=== PATIENT | male | born 1990 | race Caucasian/White ===

== ENCOUNTER 2022-05-07 11:12 | Outpatient (REF) | payer OTHER, SELFPAY ==
[2022-05-07 13:03] LABS: Influenza A PCR NEGATIVE (Negative); Influenza B PCR NEGATIVE (Negative); Resp Syncy Virus RNA Qual PCR NEGATIVE (Negative); SARS COV2 PCR INHOUSE NEGATIVE (Negative)
== END 2022-05-07 11:13 | disposition home or self-care (01) ==
LOC: HO.LNP 11:12
PROVIDERS: Visit Provider Internal Medicine
DX: Z20.822 Contact with and (suspected) exposure to COVID-19 (principal); R09.89 Other specified symptoms and signs involving the circulatory and respiratory systems
CPT/HCPCS: 0241U

== ENCOUNTER 2022-06-17 14:21 | Outpatient (REF) | payer OTHER, SELFPAY ==
[2022-06-17 15:05] LABS: Influenza A PCR NEGATIVE (Negative); Influenza B PCR NEGATIVE (Negative); Resp Syncy Virus RNA Qual PCR NEGATIVE (Negative); SARS COV2 PCR INHOUSE NEGATIVE (Negative)
== END 2022-06-17 14:22 | disposition home or self-care (01) ==
LOC: HO.LNP 14:21
PROVIDERS: Visit Provider Nurse Practitioner Family
DX: R68.89 Other general symptoms and signs (principal); Z20.822 Contact with and (suspected) exposure to COVID-19
CPT/HCPCS: 0241U

== ENCOUNTER 2022-09-01 08:22 | Outpatient (AMB) | payer OTHER, SELFPAY ==
--- NOTE | 2022-09-01 08:41 | AM.OFFWIN_ITS ---
Intake Vital Signs 09/01/22 08:43 BP 120/80 Blood Pressure Location Rt brachial Position Sitting Pulse 70 Pulse Source Pulse Oximeter Pulse Oximetry (%) 97 Oxygen Delivery Method Room Air Intake Visit Reasons: EP Back pain/workout injury (lobby) Intake Note: Patient here because he was working out on wednesday and believes he pulled something in his lower back while working out. Patient Tobacco Use Status: Never used Tobacco Allergies No Known Allergies Allergy (Verified 09/01/22 08:43) Do you need a note to return to daycare/school/sports/work: Yes HPI EP Back pain/workout injury (lobby) HPI Details 32-year-old male presents to the office for a sick visit. Patient was lifting weights at the gym when he sprained his back. Pain is relieved on bending forward. Worsened on standing up. Pain is radiating from the lower back into the legs. No urinary incontinence. [facility] Medical History (Updated 09/01/22 @ 09:14 by Gerry Baum MD) Flu-like symptoms Social History Patient Tobacco Use Status: Never used Tobacco Physical Exam Vital Signs: Last Vital Signs Pulse 70 09/01/22 08:43 BP 120/80 09/01/22 08:43 Pulse Ox 97 09/01/22 08:43 Oxygen Delivery Method Room Air 09/01/22 08:43 Back/Spine/Pelvis Other: No spinal tenderness. No paraspinal spasm. Assessment & Plan Assessment & Plan (1) Low back pain: Code(s): M54.50 - Low back pain, unspecified Plan: Meloxicam and cyclobenzaprine called in. Toradol injection provided. Patient was advised rest. Note for work if necessary provided. Once pain symptoms subside, patient should start physical therapy. If symptoms worsen to follow-up here. Orders: Orders AMB Ketorolac Injection Today M54.50 - Low back pain, unspecified Medications: New ketorolac 60 mg (2 mL) IM ONCE 2 mL 0RF M54.50 - Low back pain, unspecified Coding Level of Care Code Est Pt Level 4 (92085) Diagnoses Low back pain M54.50
[2022-09-01 08:43] VITALS: BP 120/80; PULSE 70; O2SAT 97
== END 2022-09-01 09:37 | disposition home or self-care (01) ==
PROVIDERS: PCP Internal Medicine; Visit Provider Internal Medicine
DX: M54.50 Low back pain, unspecified (principal)
CPT/HCPCS: 96372; 99214; J1885

== ENCOUNTER 2023-12-01 09:10 | Outpatient (REF) | payer OTHER, SELFPAY ==
[2023-12-01 11:04] LABS: Influenza A PCR NEGATIVE (Negative); Influenza B PCR NEGATIVE (Negative); Resp Syncy Virus RNA Qual PCR NEGATIVE (Negative); SARS COV2 PCR INHOUSE NEGATIVE (Negative)
== END 2023-12-01 09:11 | disposition home or self-care (01) ==
LOC: HO.LAB 09:10
PROVIDERS: Registered Nurse; PCP Internal Medicine
DX: R68.89 Other general symptoms and signs (principal); J06.9 Acute upper respiratory infection, unspecified
CPT/HCPCS: 0241U; 99212

== ENCOUNTER 2023-12-01 09:10 | Outpatient (AMB) | payer OTHER, SELFPAY ==
--- NOTE | 2023-12-01 09:09 | MHC.OFFWIV ---
Intake Vital Signs 12/01/23 09:13 Height 5 ft 10 in Weight 269 lb BMI 38.6 BP 120/70 Blood Pressure Location Lt brachial Position Sitting Pulse 70 Pulse Source Pulse Oximeter Temp 97.9 F Temp Source Oral Pulse Oximetry (%) 97 Oxygen Delivery Method Room Air Intake Visit Reasons: EP-body aches, headaches, frequently urine Intake Note: Patient here for body aches, headaches, frequent diarrhea and sneezing which all started wednesday. Patient Tobacco Use Status: Never used Tobacco Allergies No Known Allergies Allergy (Verified 12/01/23 09:14) Do you need a note to return to daycare/school/sports/work: Yes HPI EP-body aches, headaches, frequently urine HPI Details This note is constructed using voice recognition software. 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 The patient is a 33 year old male who presents to the clinic today with headaches, body aches, and diarrhea since Wednesday. He reports that 3 other coworkers have been sick in the last week and a half, with various times off from work. He denies fever, chills, has had up to 4 episodes of diarrhea each day. He has taken [id number] medication to help with the body aches in the headaches including Tylenol. He has not taken anything this stopped the diarrhea. He is tolerating food and fluids. [facility] Medical History (Updated 09/01/22 @ 09:14 by Gerry Baum MD) Flu-like symptoms Social History Patient Tobacco Use Status: Never used Tobacco Review of Systems Const All systems reviewed & are unremarkable except as noted in HPI and below Physical Exam Vital Signs: Last Vital Signs Temp 97.9 F 12/01/23 09:13 Pulse 70 12/01/23 09:13 BP 120/70 12/01/23 09:13 Pulse Ox 97 12/01/23 09:13 Oxygen Delivery Method Room Air 12/01/23 09:13 BMI result Body Mass Index 38.6 Const General: cooperative, healthy appearing, comfortable and no acute distress Orientation/consciousness: patient oriented x3 Limitations: no limitations HEENT Head: Yes normal to inspection Ears: hearing grossly normal bilaterally, external ears normal and TM's normal bilaterally General nose exam: Normal external nose present, Normal nares present and No nasal discharge present Face and sinus: Yes normal facial exam and Yes sinuses nontender Mouth: Normal oral and palatal mucosa present and moist mucous membranes Throat: Yes tonsils normal, Yes uvula midline and Yes posterior oropharynx abnormal (Erythema) Eyes General: appearance normal, both eyes and all related structures Neck Neck: Yes normal visual inspection Resp Effort & Inspection: normal respiratory effort, able to speak in complete sentences, Actively coughing, no respiratory distress, not tachypneic, no tripod positioning and no use of accessory muscles Auscultation: clear to auscultation bilaterally Cardio Jugular venous distension: no JVD Rate: regular rate Rhythm: regular rhythm Heart sounds: S1 normal heart sound present, S2 normal heart sound present, no click, no gallops, no murmurs and no rubs GI Inspection: Yes normal to inspection Palpation (GI): Soft to palpation and nontender Auscultation: normal bowel sounds Skin General skin exam: no rashes or lesions noted, elasticity normal and turgor normal Neuro General: patient oriented x3 Extrem General: Yes normal to inspection and Yes no clubbing, cyanosis or edema Assessment & Plan Assessment & Plan (1) Flu-like symptoms: Code(s): R68.89 - Other general symptoms and signs Plan: Viral swab obtained to rule out Covid based on symptoms. Advised mask wearing while symptomatic and quarantine per current CDC guidelines. Reviewed at home support methods including hydration, humidification, vix vapor rub, sinus rinse. Given GI symptoms, may also be viral gastroenteritis. Advised hydration efforts, and gentle diet to help reduce worsening. May try [id number] Pepto-Bismol or other antidiarrheal medication. Advised follow up with worsening symptoms such as dyspnea at rest, which would require emergent evaluation. Letter provided for work to remain out through today and tomorrow. Plan See above for full details and plan. Orders: Orders SARS-CoV2/FLU/RSV Today J06.9 - Acute upper respiratory infection, unspecified Coding Level of Care Code Est Pt Level 3 (41031) Diagnoses Flu-like symptoms R68.89
[2023-12-01 09:13] VITALS: BP 120/70; PULSE 70; TEMP 36.6; O2SAT 97; BMI 38.6
== END 2023-12-01 09:38 | disposition home or self-care (01) ==
PROVIDERS: PCP Internal Medicine; Visit Provider Registered Nurse
DX: R68.89 Other general symptoms and signs (principal)

== ENCOUNTER 2024-01-17 10:40 | Outpatient (AMB) | payer OTHER, SELFPAY ==
--- NOTE | 2024-01-17 13:03 | MHC.OFFWIV ---
Intake Vital Signs 01/17/24 13:06 Weight 278 lb BP 120/80 Blood Pressure Location Rt brachial Position Sitting Pulse 75 Pulse Source Pulse Oximeter Temp 98.1 F Temp Source Oral Pulse Oximetry (%) 98 Oxygen Delivery Method Room Air Intake Visit Reasons: EP body aches, congestion, vomiting [phone] Intake Note: Patient here for body aches, congestion, and vomiting that started today Patient Tobacco Use Status: Never used Tobacco Allergies No Known Allergies Allergy (Verified 01/17/24 13:09) Do you need a note to return to daycare/school/sports/work: Yes HPI HPI Comments History of Present Illness Details History of Present Illness The patient is a 33-year-old male presenting with nausea and vomiting. The symptoms began abruptly at 3:00 AM on the day of the visit, with two episodes of emesis initially. Initially, the vomiting was clear in appearance, but the patient described it as gunk clear in texture. Following the vomiting episodes, he experienced body aches, a stuffy nose, bloating sensation in the stomach, and headache. Although the nausea persists intermittently, the patient has refrained from eating to avoid further vomiting. There is no history of diarrhea, fever, upper respiratory symptoms such as cough or sore throat, and no recent significant dietary changes. The patient lives alone and reported no exposures to individuals with similar symptoms. He has no significant alcohol consumption or known sick contacts. The patient expresses concern about current viral infections circulating in the community and is currently refraining from occupational duties due to his symptoms. [facility] Medical History (Updated 01/17/24 @ 13:23 by Ashley Chavez PA-C) Flu-like symptoms Social History Patient Tobacco Use Status: Never used Tobacco Review of Systems Const All systems reviewed & are unremarkable except as noted in HPI and below Physical Exam Vital Signs: Last Vital Signs Temp 98.1 F 01/17/24 13:06 Pulse 75 01/17/24 13:06 BP 120/80 01/17/24 13:06 Pulse Ox 98 01/17/24 13:06 Oxygen Delivery Method Room Air 01/17/24 13:06 Const General: cooperative, healthy appearing, comfortable, no acute distress and well developed Orientation/consciousness: patient oriented x3 Limitations: no limitations HEENT Head: Yes normal to inspection Ears: hearing grossly normal bilaterally General nose exam: Normal external nose present Face and sinus: Yes normal facial exam Eyes General: appearance normal, both eyes and all related structures Neck Neck: Yes normal visual inspection and Yes full ROM Resp Effort & Inspection: normal respiratory effort and able to speak in complete sentences GI Inspection: Yes normal to inspection Palpation (GI): Soft to palpation and Tenderness to palpation present (GI) (very mild general) Fisher's sign negative Skin General skin exam: no rashes or lesions noted Neuro General: patient oriented x3 Extrem General: Yes normal to inspection Assessment & Plan Assessment & Plan (1) Viral gastroenteritis: Code(s): A08.4 - Viral intestinal infection, unspecified Plan: The likely diagnosis is viral gastroenteritis given the symptomology and current viral outbreaks. Testing for influenza, COVID-19, and RSV has been performed to rule out these infections. Though the patient exhibits mild generalized abdominal tenderness, there are no signs suggestive of a more acute underlying abdominal condition requiring immediate intervention. Recommend supportive care with proper hydration using fluids like water or diluted Gatorade to maintain hydration. Advise starting a bland diet as tolerated, focusing on bland items like the BRAT diet bananas, rice, applesauce, toast and slowly reintroducing regular foods. Prescribed ondansetron (Zofran) for symptomatic relief of nausea, with instructions on administration. 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 Patient was informed and verbally consented to the use of an ambient scribe for clinic note documentation during this visit. Orders: Orders SARS-CoV2/FLU/RSV Today J06.9 - Acute upper respiratory infection, unspecified Medications: New ondansetron 4 mg PO Q8H PRN 10 tabs 0RF nausea and vomiting Coding Level of Care Code New Pt Level 3 (97503) Diagnoses Viral gastroenteritis A08.4
[2024-01-17 13:06] VITALS: BP 120/80; PULSE 75; TEMP 36.7; O2SAT 98
== END 2024-01-17 13:25 | disposition home or self-care (01) ==
PROVIDERS: PCP Internal Medicine; Visit Provider Physician Assistant
DX: A08.4 Viral intestinal infection, unspecified (principal)

== ENCOUNTER 2024-01-17 10:40 | Outpatient (REF) | payer OTHER, SELFPAY ==
[2024-01-17 20:01] LABS: Influenza A PCR NEGATIVE (Negative); Influenza B PCR NEGATIVE (Negative); Resp Syncy Virus RNA Qual PCR NEGATIVE (Negative); SARS COV2 PCR INHOUSE NEGATIVE (Negative)
== END 2024-01-17 10:41 | disposition home or self-care (01) ==
LOC: HO.LNP 10:40
PROVIDERS: PCP Internal Medicine; Visit Provider Physician Assistant
DX: J06.9 Acute upper respiratory infection, unspecified (principal); A08.4 Viral intestinal infection, unspecified
CPT/HCPCS: 0241U; 99202

== ENCOUNTER 2024-06-06 08:53 | Outpatient (REF) | payer OTHER, SELFPAY ==
[2024-06-06 11:57] LABS: Influenza A PCR NEGATIVE (Negative); Influenza B PCR NEGATIVE (Negative); Resp Syncy Virus RNA Qual PCR NEGATIVE (Negative); SARS COV2 PCR INHOUSE NEGATIVE (Negative)
--- OUTSIDE RECORDS SUMMARY | 2024-06-06 12:10 | XMS_ITS | Clinical Summary ---
Author Organization [facility] [address] [place] [address] [place] [phone] Phone Care Team Providers Care Steel Erecting Pusher Name Role Phone Naveen Flores MD Primary Care Provider [phone] Allergies No known active allergies Medications fluticasone [...] Noted Date Diagnosed Date Bipolar 2 disorder ([facility] V24, [facility] V28) Schizophrenia ([facility] V24, [facility] V28) 024 Morbid obesity with BMI of 4 0.0-44.9, adult ([facility] V24, [facility] V28) 11/21/2023 Immunizations Name Administration Dates Next Due DTP 06/30/1995, 5,11/15/1992,07/18,1990 [id number] (Pentacel) 2mo to less than 5yo 07/18/1992,1990 Hepatitis B (Rgziafj-I-Dipcl , Recombivax HB-Adult) 19yo and older 04/07/1996,10/12/1995,06/30/1995 [...] Medical History Date Comments Bipolar 2 disorder ([facility]24, [facility] V28) 02/16/2024 patient stephanie hx of mental h ealth issues as an adult - child [place] mental issues Schizophrenia ([facility] V24, [facility] V28) DX:Schizophrenia ([facility]) Family History Medical History Relation Name [...] care for your loved ones. For example, child welfare director or elderly care for an older adult? 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 Not on file Not [...] LAB CHEMISTRY METHOD 12/30/2023 7:32 PM EST [facility] Blood Venous blood specimen / Unknown Venipuncture / Unknown 12/30/2023 3:04 PM EST 12/30/2023 3:04 PM EST Francesca RENAE LAB BLOOD ORDERABLES Fi nal Result [facility] [address] [place] [address], * HIV 1,2 antibody, p24 antigen with reflex to differentiation (12/30/2023 3:04 PM EST) [facility] HIV Combo AB/AG Negative Negative LAB CHEMISTRY METHOD 12/30/2023 7:33 PM EST [facility] Blood Venous blood specimen / Unknown Venipuncture / Unknown 12/30/2023 3:04 PM EST 12/30/2023 3:04 PM EST Narrative [facility] - 12/30/2023 7:33 PM EST This [...] RENAE LAB BLOOD ORDERABLES Fi nal Result [facility] [address] [place] [address], [place] [phone] * (ABNORMAL) Lipid panel with reflex to direct LDL (12/30/2023 3:04 PM EST) [facility] Cholesterol 199 0 - 200 mg/dL LAB CHEMISTRY METHOD 12/30/2023 6:52 PM EST [facility] Triglycerides 93 0 - 150 mg/dL LAB CHEMISTRY METHOD 12/30/2023 6:52 PM [facility] HDL 66 >=40 mg/dL LAB CHEMISTRY METHOD 12/30/2023 6:52 PM EST [facility] LDL Calculated 114(H) 0 - 100 mg/dL LAB CHEMISTRY METHOD 12/30/2023 6:52 PM EST [facility] VLDL Cholesterol Damian 18.6 mg/dL LAB CHEMISTRY METHOD 12/30/2023 6:52 PM EST [facility] Non HDL Chol. (LDL+VLDL) 133 <145 mg/dL LAB CHEMISTRY METHOD 12/30/2023 6:52 PM [facility] Chol/HDL Ratio 3.0 0.0 - 4.4 LAB CHEMISTRY METHOD 12/30/2023 6:52 PM [facility] Blood Venous blood specimen / Unknown Venipuncture / Unknown 12/30/2023 3:04 PM EST 12/30/2023 3:04 PM EST Francesca Aranda [place] LAB BLOOD ORDERABLES Fi nal Result Performing Organization Address [facility]/ZIP Co de Phone Number [facility] [address] [place] [address], [place] [phone] from Last 3 Months or Most Recently Relevant to Health Maintenance Insurance [facility] Care Teams Steel Erecting Pusher Relationship Specialty Start Date End Date Naveen Flores MD [address] [place] [phone] PCP - General 06/26/09
== END 2024-06-06 08:54 | disposition home or self-care (01) ==
LOC: HO.LNP 08:53
PROVIDERS: PCP Internal Medicine; Visit Provider Physician Assistant
DX: J06.9 Acute upper respiratory infection, unspecified (principal)
CPT/HCPCS: 0241U; 99212

== ENCOUNTER 2024-06-06 08:53 | Outpatient (AMB) | payer OTHER, SELFPAY ==
--- NOTE | 2024-06-06 09:02 | AM.OFFWIN_ITS ---
Intake Vital Signs 06/06/24 09:17 Weight 287 lb 4 oz BP 122/80 Blood Pressure Location Rt brachial Position Sitting Pulse 77 Pulse Source Pulse Oximeter Temp 98.2 F Temp Source Oral Pulse Oximetry (%) 97 Oxygen Delivery Method Room Air Intake Visit Reasons: EP-stuffy nose, nights sweat, body ache Intake Note: Patient here for stuffy nose, body aches, night sweats that started yesterday. Patient Tobacco Use Status: Never used Tobacco Allergies No Known Allergies Allergy (Verified 01/17/24 13:09) Do you need a note to return to daycare/school/sports/work: Yes HPI HPI Comments History of Present Illness Details This is a 34-year-old male with no stated past medical history presenting for evaluation of body aches, stuffy nose and night sweats that he has had since yesterday afternoon. Patient denies having any fever, chills, shortness for breath, nausea, vomiting, otalgia, headache or lightheadedness. Patient has taken Delsym only because he has had a very mild cough. Patient denies having any sick contacts. [facility] Medical History (Updated 06/06/24 @ 09:28 by Raquel Mcconnell PA-C) Acute upper respiratory infection Flu-like symptoms Social History Patient Tobacco Use Status: Never used Tobacco Review of Systems Const All systems reviewed & are unremarkable except as noted in HPI and below Reports body aches, Denies chills, Denies fever(s), Denies headache(s) and Denies weakness Eyes Reports no additional complaints ENT Reports no additional complaints, Denies headache(s), Denies hoarseness, Reports nasal congestion and Denies sore throat Card Reports no additional complaints and Denies dyspnea Resp Reports no additional complaints, Reports cough ( mild ) and Denies dyspnea GI Denies nausea and Denies vomiting Reports no additional complaints Musc Reports no additional complaints Skin/Breast Reports system reviewed and no additional complaints, except as documented Neuro Reports no additional complaints, Denies headache(s) and Denies weakness Psych Reports no additional complaints Endo Reports no additional complaints Stew/Lymph Reports no additional complaints Aller/Immun Reports no additional complaints Physical Exam Const General: cooperative, no acute distress, well developed, alert, awake and Physically active; No ill appearing or tired appearing Nutritional Appearance: well nourished Orientation/consciousness: patient oriented x3 Limitations: no limitations HEENT Head: Yes normal to inspection Ears: hearing grossly normal bilaterally, external ears normal, TM's normal bilaterally and EAC's normal General nose exam: Normal external nose present Face and sinus: Yes normal facial exam and Yes sinuses nontender Mouth: Normal oral and palatal mucosa present, oropharynx normal and moist mucous membranes Throat: Yes posterior oropharynx normal Eyes General: appearance normal, both eyes and all related structures Neck Lymphatic: no lymphadenopathy noted Resp Effort & Inspection: normal respiratory effort, no cough, no nasal flaring and not tachypneic Auscultation: clear to auscultation bilaterally Cardio Rate: regular rate Rhythm: regular rhythm Skin General skin exam: no rashes or lesions noted Neuro General: patient oriented x3 Psych Appearance: grossly normal Mental Status: mental status grossly normal Insight: Good insight present (Psych) Judgement: Good judgement present (Psych) Assessment & Plan Assessment & Plan (1) Acute upper respiratory infection: Comment: Patient is well-appearing, afebrile and in no acute distress. Patient's history coupled with his examination is most likely consistent with a viral illness. SARS panel is ordered and results are pending. Code(s): J06.9 - Acute upper respiratory infection, unspecified Plan: Ibuprofen and/or Tylenol as needed for body aches, increased sleep as tolerated, clear fluids daily. Orders: Orders SARS-CoV2/FLU/RSV Today J06.9 - Acute upper respiratory infection, unspecified Coding Level of Care Code Est Pt Level 3 (22192) Diagnoses Acute upper respiratory infection J06.9 Time Spent (min) 20
[2024-06-06 09:17] VITALS: BP 122/80; PULSE 77; TEMP 36.8; O2SAT 97
--- OUTSIDE RECORDS SUMMARY | 2024-06-06 09:18 | XMS_ITS | Clinical Summary ---
Author Organization [facility] [address] [place] [address] [place] [phone] Phone Care Team Providers Care Land Leasing Examiner Name Role Phone Naveen Flores MD Primary Care Provider [phone] Allergies No known active allergies Medications fluticasone propionate (FLONASE) 50 mcg/actuation nasal spray Administer 1 spray into each nostril 2 (two) times a day. FOR 30 DAYS 3 Active cetirizine (ZyrTEC) 10 mg tablet Take 1 tablet (10 mg total) by mouth 1 (one) time each day. 90 each 1 4 Active Additional Information Patient not taking.Reported on 02/16/2024 Active Problems Problem Noted Date Diagnosed Date Bipolar 2 disorder ([facility] V24, [facility] V28[facility] Schizophrenia ([facility] V24, [facility] V28) 024 Morbid obesity with BMI of 4 0.0-44.9, adult ([facility] V24, [facility] V28) 11/21/2023 Immunizations Name Administration Dates Next Due DTP 06/30/1995, 5,11/15/1992,07/18,1990 XIqW-[id number] (Pentacel) 2mo to less than 5yo 07/18/1992,1990 Hepatitis B (Yeawrjx-M-Twdjs , Recombivax HB-Adult) 19yo and older 04/07/1996,10/12/1995,06/30/1995 Influenza trivalent, with pr eservative (Fluzone; Afluria) 6mo and older 11/18/2015,09/09/2012 MMR, measles mumps and rubel la Live (Priorix; M-M-R II) 12mo and older 06/30/1995,07/18/1992 Meningococcal MCV4P 09/23/2005 OPV 06/30/1995, 3,07/18/1992,05/29 Td Tetanus diptheria (Tdvax) 7yo and older 05/11/2002 Tdap Tetanus diptheria acell ular pertussis (Boostrix; Adacel) 7yo and older 01/28/2019,12/17/2015,01/23/2013 Surgical History Surgery Date Site/Laterality Comments WISDOM TOOTH EXTRACTION 2015 PROCEDURE: HISTORICAL WISDOM TEETH EXTRACTION; COMMENT: all 4 Medical History Medical History Date Comments Bipolar 2 disorder ([facility], [facility]28) 02/16/2024 patient stephanie hx of mental h ealth issues as an adult - child [place] mental issues Schizophrenia ([facility]24, [facility] V28) DX:Schizophrenia ([facility]) Family History Medical History Relation Name Comments Blindness Maternal Grandmother Diabetes Mother's side Cataracts Neg Hx Glaucoma Neg Hx Macular degeneration Neg Hx Strabismus Neg Hx Relation Name Status Comments Brother 1 Alive Brother 2 Alive Father Alive Maternal Grandfather Maternal Grandmother Alive Mother Alive Mother's side Paternal Grandfather Alive Paternal Grandmother Alive Sister Alive Social History Tobacco Use Types Packs/Day Years Used Date Smoking Tobacco: Never Smokeless Tobacco: Never Tobacco Cessation:Counseling Given: Not Answered Alcohol Use Standard Drinks/Week Comments Yes 0 (1 standard drink = 0.6 oz pur e alcohol) holidays, events Housing Instability Answer Date Recorde d Are you worried that in the next 2 months you may not have stable housing? No 12/30/2023 Food Access & Nutrition Answer Date Rec orded Do you have access to a vari ety of food including fruits and vegetables? Yes 12/30/2023 Access to Healthcare Answer Date Record ed Within the last 3 months, ho w many times did you visit the emergency department for your medical care? 0 12/30/2023 Health Literacy Answer Date Recorded How often do you need to hav e someone help you when you read instructions, pamphlets, or other written material from your doctor or pharmacy? Never 12/30/2023 Caregiver: How often do you need to have someone help you when you read instructions, pamphlets, or other written material from your doctor or pharmacy? Not on file 12/30/2023 Financial Risk Answer Date Recorded How hard is it for you to pa y for the very basics like food, housing, medical care, and air conditioning / heating? Somewhat hard 12/30/2023 Transportation Answer Date Recorded Has the lack of transportati on kept you from meetings, work, or from getting things needed for daily living? No Has the lack of transportati on kept you from medical appointments or from getting medications? No 12/30/2023 Social Isolation Answer Date Recorded How often do you feel lonely or isolated from th ose around you? Never 12/30/2023 Food Risk Answer Date Recorded Within the past 12 months we worried whether our food would run out before we got money to buy more. Never true 12/30/2023 Within the past 12 months th e food we bought just didn't last and we didn't have money to get more. Never true 12/30/2023 Dependent Care Answer Date Recorded Do you need help finding or paying for care for your loved ones. For example, housekeeper child care or elderly care for an older adult? No 12/30/2023 Education Answer Date Recorded Do you think completing more education or training, like finishing a GED, going to college, or learning a trade, would be helpful for you? Yes 12/30/2023 Living Situation Answer Date Recorded What is your living situation? 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 Not on file Not on file Obstetrics History Last Filed Vital Signs Vital Sign Reading Time Taken Comments Blood Pressure 132/84 02/17/2024 10:00 AM EST Pulse 87 02/17/2024 10:00 AM EST Temperature 36.3 ??C (97.3 ??F) 02/17/2024 10:[address] Respiratory Rate 16 02/17/2024 10:00 AM EST Oxygen Saturation 98% 02/17/2024 10:00 AM EST Inhaled Oxygen Concentration - - Weight 118 kg (260 lb) 02/16/2024 11:09 PM EST Height 177.8 cm (5' 10 ) 02/16/2024 11:09 PM EST Body Mass Index 37.31 02/16/2024 11:09 PM EST Plan of Treatment Health Maintenance Due Date Last Done Comments COVID-19 Vaccine ( season) 2023 Depression Screening 12/29/2024 12/30/2023 Social Influencers of Health Screening 12/29/2024 12/30/2023 Cholesterol Screening (Lipid Panel) 12/29/2028 12/30/2023, 07/28/2022 DTaP,Tdap,and Td Vaccines (10 - Td or Tdap) 01/28/2029 01/28/2019, 12/17/2015, 01/23/2013, Additional history exists HIB Vaccines Completed 07/18/1992, 04/1992, 1990, Additional history exists IPV Vaccines Completed 06/30/1995, 02/1992, 07/18/1992, Additional history exists MMR Vaccines Completed 06/30/1995, 07/18/1992 Hepatitis B Vaccines Completed 04/07/1996, 10/12/1995, 06/30/1995 Meningococcal ACWY Vaccine Aged Out 09/23/2005 N o longer eligible based on patient's age to complete this topic Influenza Vaccine Discontinued 11/18/2015, 09/09/2012 HIV Screening Completed 12/30/2023, 07/28/2022 Hepatitis C Screening Completed 12/30/2023, 023 HPV Vaccines Aged Out No longer eligi ble based on patient's age to complete this topic Hepatitis A Vaccines Aged Out No long er eligible based on patient's age to complete this topic Meningococcal B Vaccine Aged Out No l onger eligible based on patient's age to complete this topic Pneumococcal Vaccine: Pediatrics (0 to 5 Years) and At-Risk Patients (6 to 64 Years) Aged Out No longer eligible based on patient's age to complete this topic RSV Immunization Patients Under 20 months Aged Out No longer eligible based on patient's age to complete this topic Varicella Vaccines Aged Out No longer eligible based on patient's age to complete this topic Procedures Procedure Name Priority Date/Time Associated Diagnosis Comments HEPATITIS C ANTIBODY Routine 12/30/2023 3:04 PM EST Screening for STDs (sexually transmitted diseases) HIV 1, 2 ANTIBODY, P24 ANTIGEN WITH REFLEX TO DIFFERENTIATION Routine 12/30/2023 3:04 PM EST Screening for STDs (sexually transmitted diseases) LIPID PANEL WITH REFLEX TO DIRECT LDL Routine 12/30/2023 3:04 PM EST Routine history and physical examination of adult from Last 3 Months or Most Recently Relevant to Health Maintenance Results * Hepatitis C antibody (12/30/2023 3:04 PM EST) Pathologist [facility] Hepatitis C Antibody Negative Negative LAB CHEMISTRY METHOD 12/30/2023 7:32 PM EST [facility] Blood Venous blood specimen / Unknown Venipuncture / Unknown 12/30/2023 3:04 PM EST 12/30/2023 3:04 PM EST Francesca RENAE LAB BLOOD ORDERABLES Fi nal Result [facility] [address] [place] [address], * HIV 1,2 antibody, p24 antigen with reflex to differentiation (12/30/2023 3:04 PM EST) [facility] HIV Combo AB/AG Negative Negative LAB CHEMISTRY METHOD 12/30/2023 7:33 PM EST [facility] Blood Venous blood specimen / Unknown Venipuncture / Unknown 12/30/2023 3:04 PM EST 12/30/2023 3:04 PM EST Narrative [facility] - 12/30/2023 7:33 PM EST This assay is a 4th generation assay allowing for earlier detection of HIV infection by detecting the presence of the HIV-1 p24 antigen as well as the traditional antibodies to HIV type 1 (including group O) and type 2. ??Use of a 4th generation assay is the current CDC recommendation for HIV screening. Francesca RENAE LAB BLOOD ORDERABLES Fi nal Result [facility] [address] [place] [address], [place] [phone] * (ABNORMAL) Lipid panel with reflex to direct LDL (12/30/2023 3:04 PM EST) [facility] Cholesterol 199 0 - 200 mg/dL LAB CHEMISTRY METHOD 12/30/2023 6:52 PM EST [facility] Triglycerides 93 0 - 150 mg/dL LAB CHEMISTRY METHOD 12/30/2023 6:52 PM [facility] HDL 66 >=40 mg/dL LAB CHEMISTRY METHOD 12/30/2023 6:52 PM EST [facility] LDL Calculated 114(H) 0 - 100 mg/dL LAB CHEMISTRY METHOD 12/30/2023 6:52 PM EST [facility] VLDL Cholesterol Damian 18.6 mg/dL LAB CHEMISTRY METHOD 12/30/2023 6:52 PM EST [facility] Non HDL Chol. (LDL+VLDL) 133 <145 mg/dL LAB CHEMISTRY METHOD 12/30/2023 6:52 PM [facility] Chol/HDL Ratio 3.0 0.0 - 4.4 LAB CHEMISTRY METHOD 12/30/2023 6:52 PM [facility] Blood Venous blood specimen / Unknown Venipuncture / Unknown 12/30/2023 3:04 PM EST 12/30/2023 3:04 PM EST Francesca Aranda [place] LAB BLOOD ORDERABLES Fi nal Result Performing Organization Address [facility]/ZIP Co de Phone Number [facility] [address] [place] [address], [place] [phone] from Last 3 Months or Most Recently Relevant to Health Maintenance Insurance [facility] Care Teams Land Leasing Examiner Relationship Specialty Start Date End Date Naveen Flores MD [address] [place] [phone] PCP - General 06/26/09
== END 2024-06-06 09:23 | disposition home or self-care (01) ==
PROVIDERS: PCP Internal Medicine; Visit Provider Physician Assistant
DX: J06.9 Acute upper respiratory infection, unspecified (principal)

== ENCOUNTER 2024-10-31 10:47 | Outpatient (REF) | payer OTHER, SELFPAY ==
--- OUTSIDE RECORDS SUMMARY | 2024-10-31 15:00 | XMS_ITS ---
Author Name [facility] Organization Unknown Care Team Organization Name Specialty Phone Email Start Date End Da te [facility] 12/23/2021 4
[2024-10-31 15:19] LABS: Chlamydia pneumoniae PCR Not Detected (Not Detect.); Coronavirus 229E PCR Not Detected (Not Detect.); Coronavirus HKU1 PCR Not Detected (Not Detect.); Coronavirus NL63 PCR Not Detected (Not Detect.); Coronavirus OC43 PCR Not Detected (Not Detect.); RSV PCR Not Detected (Not Detect.); Rhino/Enterovirus PCR Not Detected (Not Detect.)
[2024-10-31 15:23] LABS: Influenza A H1 PCR Not Detected (Not Detect.); Influenza A H1-2009 PCR Not Detected (Not Detect.); Influenza A H3 PCR Not Detected (Not Detect.); SARS-CoV-2 PCR Not Detected (Not Detect.)
== END 2024-10-31 10:48 | disposition home or self-care (01) ==
LOC: HO.LAB 10:47
PROVIDERS: Physician Assistant; PCP Internal Medicine
DX: J06.9 Acute upper respiratory infection, unspecified (principal); R05.9 Cough, unspecified; R09.81 Nasal congestion
CPT/HCPCS: 87633; 99212

== ENCOUNTER 2024-10-31 10:47 | Outpatient (AMB) | payer OTHER, SELFPAY ==
[2024-10-31 10:54] VITALS: BP 114/80; PULSE 88; RESP 18; TEMP 36.8; O2SAT 99; BMI 40.3
--- NOTE | 2024-10-31 10:54 | AM.OFFWIN_ITS ---
Intake Vital Signs 10/31/24 10:54 Height 5 ft 10 in Weight 281 lb BMI 40.3 BP 114/80 Blood Pressure Location Lt brachial Position Sitting Respiration 18 Pulse 88 Pulse Source Pulse Oximeter Temp 98.2 F Temp Source Oral Pulse Oximetry (%) 99 Oxygen Delivery Method Room Air Intake Visit Reasons: EP-cough, diarrhea, night sweats Patient Tobacco Use Status: Never used Tobacco Engineering Technical Analyst Required: No Allergies No Known Allergies Allergy (Verified 10/31/24 10:58) HPI HPI Comments History of Present Illness Details History - The patient is a 34-year-old male pres enting with symptoms of a viral infection for 3 days. - Reports cough, congestion, diarrhea, a nd night sweats. No bloody or black diarrhea. - Experiences feeling hot and cold witho ut fever, shortness of breath or wheezing. - Uses NyQuil for symptom relief, which is temporary. - No history of asthma or COPD. - Did not test at home for Covid Physical Exam General: Cooperative, healthy appearing, comfortable and no acute distress Orientation/consciousness: Patient oriented x3 Limitations: No limitations Head: Normal to inspection Ears: Hearing grossly normal bilaterally, external ears normal and TM's normal bilaterally Nose: Normal external nose present, Normal nares present and No nasal discharge present Face and sinus: Normal facial exam and Yes sinuses nontender Mouth: Normal oral and palatal mucosa present and moist mucous membranes Throat: Yes tonsils normal, Yes uvula midline. Posterior oropharynx erythema, no exudates Eyes: Appearance normal, both eyes and all related structures Neck: Normal visual inspection, full ROM Respiratory: Clear to auscultation bilaterally. Normal respiratory effort, able to speak in complete sentences, not actively coughing, no respiratory distress, not tachypneic, no tripod positioning and no use of accessory muscles Cardiovascular: Regular rate and rhythm. Normal S1 and S2 Skin: No rashes or lesions noted Neuro: Patient oriented x3 Extremities: Normal to inspection and Yes no clubbing, cyanosis or edema [facility] Medical History (Updated 10/31/24 @ 11:08 by Ashley Chavez PA-C) Acute upper respiratory infection Flu-like symptoms Social History Patient Tobacco Use Status: Never used Tobacco Review of Systems Const All systems reviewed & are unremarkable except as noted in HPI and below Physical Exam Vital Signs: Last Vital Signs Temp 98.2 F 10/31/24 10:54 Pulse 88 10/31/24 10:54 Resp 18 10/31/24 10:54 BP 114/80 10/31/24 10:54 Pulse Ox 99 10/31/24 10:54 Oxygen Delivery Method Room Air 10/31/24 10:54 BMI result Body Mass Index 40.3 Assessment & Plan Assessment & Plan (1) Acute upper respiratory infection: Code(s): J06.9 - Acute upper respiratory infection, unspecified Plan: Plan Patient was informed and verbally consented to the use of an ambient scribe for clinic note documentation during this visit. VSS, pt well appearing and PE unremarkable. Viral Infection - Manage symptoms with Tessalon Perles for cough relief as well as a decongestant. - Conduct viral panel testing to identify specific virus. - Recommend rest and hydration to aid recovery. - Wrote work note for 5 days. Orders: Orders Resp Pathogen Panel - [facility] Today J06.9 - Acute upper respiratory infection, unspecified Medications: New benzonatate 200 mg PO BEDTIME PRN 10 caps 0RF cough Coding Level of Care Code New Pt Level 3 (10600) Diagnoses Acute upper respiratory infection J06.9
--- OUTSIDE RECORDS SUMMARY | 2024-10-31 14:24 | XMS_ITS | Clinical Summary ---
Author Organization [facility] [address] [place] [address] [place] [phone] Phone Care Team Providers Care Chair Post Machine Operator Name Role Phone Naveen Flores MD Primary Care Provider [phone] Allergies No known active allergies Medications fluticasone [...] Noted Date Diagnosed Date Bipolar 2 disorder ([facility]24, [facility] V28) Schizophrenia ([facility] V24, [facility] V28) 024 Morbid obesity with BMI of 4 0.0-44.9, adult ([facility] V24, [facility] V28) 11/21/2023 Immunizations Name Administration Dates Next Due DTP 06/30/1995, 5,11/15/1992,07/18,1990 [id number] (Pentacel) 2mo to less than 5yo 07/18/1992,1990 Hepatitis B (Ufixtyq-L-Gtrph , Recombivax HB-Adult) 19yo and older 04/07/1996,10/12/1995,06/30/1995 [...] Medical History Date Comments Bipolar 2 disorder ([facility] V24, [facility] V28) 02/16/2024 patient stephanie hx of mental h ealth issues as an adult - child [place] mental issues Schizophrenia ([facility] V24, [facility] V28) DX:Schizophrenia ([facility]) Family History Medical History Relation Name Comments [...] for your loved ones. For example, child care attendant school or elderly care for an older adult? 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 Not on file Obstetrics History Last Filed Vital Signs Vital Sign Reading Time Taken Comments Blood Pressure 132/84 02/17/2024 10:00 AM EST Pulse 87 02/17/2024 10:00 AM EST Temperature 36.3 C (97.3 F) 02/17/2024 10:00 AM EST Respiratory Rate 16 02/17/2024 10:00 AM EST Oxygen Saturation 98% 02/17/2024 10:00 AM EST Inhaled Oxygen Concentration - - Weight 118 kg (260 lb) 02/16/2024 11:09 PM EST Height 177.8 cm (5' 10 ) 02/16/2024 11:09 PM EST Body Mass Index 37.31 02/16/2024 11:09 PM EST Plan of Treatment Health Maintenance Due Date Last Done Comments Hepatitis A Vaccines (1 of 2 - Risk 2-dose series) 2009 Depression Screening 02/16/2024 COVID-19 Vaccine ( season) 2024 Social Influencers of Health Screening 12/29/2024 12/30/2023 [...] 5 Years) and At-Risk Patients (6 to 49 Years) Aged Out No longer eligible based [...] Hepatitis C antibody (12/30/2023 3:04 PM EST) Hepatitis C Antibody Negative Negative LAB CHEMISTRY METHOD 12/30/2023 7:32 PM EST [facility] Blood Venous blood specimen / Unknown Venipuncture / Unknown 12/30/2023 3:04 PM EST 12/30/2023 3:04 PM EST Francesca RENAE LAB BLOOD ORDERABLES Fi nal Result [facility] [address] [place] [address], * HIV 1,2 antibody, p24 antigen with reflex to differentiation (12/30/2023 3:04 PM EST) HIV Combo AB/AG Negative Negative LAB CHEMISTRY METHOD 12/30/2023 7:33 PM EST [facility] Blood Venous blood specimen / Unknown Venipuncture / Unknown 12/30/2023 3:04 PM EST 12/30/2023 3:04 PM EST Narrative [facility] - 12/30/2023 7:33 PM EST This assay is a 4th generation assay allowing for earlier detection of HIV infection by detecting the presence of the HIV-1 p24 antigen as well as the traditional antibodies to HIV type 1 (including group O) and type 2. Use of a 4th generation assay is the current CDC recommendation for HIV screening. Francesca RENAE LAB BLOOD ORDERABLES Fi nal Result [facility] [address] [place] [address], [place] [phone] * (ABNORMAL) Lipid panel with reflex to direct LDL (12/30/2023 3:04 PM EST) Cholesterol 199 0 - 200 mg/dL LAB CHEMISTRY METHOD 12/30/2023 6:52 PM EST [facility] Triglycerides 93 0 - 150 mg/dL LAB CHEMISTRY METHOD 12/30/2023 6:52 PM EST [facility] HDL 66 >=40 mg/dL LAB CHEMISTRY METHOD 12/30/2023 6:52 PM EST [facility] LDL Calculated 114(H) 0 - 100 mg/dL LAB CHEMISTRY METHOD 12/30/2023 6:52 PM EST [facility] VLDL Cholesterol Damian 18.6 mg/dL LAB CHEMISTRY METHOD 12/30/2023 6:52 PM EST [facility] Non HDL Chol. (LDL+VLDL) 133 <145 mg/dL LAB CHEMISTRY METHOD 12/30/2023 6:52 PM EST [facility] Chol/HDL Ratio 3.0 0.0 - 4.4 LAB CHEMISTRY METHOD 12/30/2023 6:52 PM EST [facility] Blood Venous blood specimen / Unknown Venipuncture / Unknown 12/30/2023 3:04 PM EST 12/30/2023 3:04 PM EST [facility] BLOOD ORDERABLES Fi nal Result [facility] [address] [place] [address], [place] [phone] from Last 3 Months or Most Recently Relevant to Health Maintenance Insurance [facility] Care Teams Chair Post Machine Operator Relationship Specialty Start Date End Date Naveen Flores MD PCP - General 06/26/09
== END 2024-10-31 11:09 | disposition home or self-care (01) ==
PROVIDERS: PCP Internal Medicine; Visit Provider Physician Assistant
DX: J06.9 Acute upper respiratory infection, unspecified (principal)